=== PATIENT | female | born 1970 | race Caucasian/White ===

== ENCOUNTER 2022-06-05 11:03 | Emergency (ER) | payer OTHER ==
[~2022-06-05] VITALS: Ht 149.9 cm; Wt 83.5 kg
[2022-06-05 11:23] VITALS: BP 182/96
--- NOTE | 2022-06-05 11:33 | NUR ---
SCOTT. HANDED ON URINE CUP.
--- NOTE | 2022-06-05 11:39 | NUR ---
EKG AT TRIAGE ROOM
[2022-06-05 12:14] LABS: BASOPHILS # (AUTO) 0.1 K/uL (0.00-0.22); BASOPHILS % (AUTO) 0.6 % (0.0-2.0); EOSINOPHILS # (AUTO) 0.2 K/uL (0-0.4); EOSINOPHILS % (AUTO) 1.7 % (0.0-4.0); HEMATOCRIT 40.6 % (36-48); HEMOGLOBIN 13.7 g/dL (12.0-16.0); LYMPHOCYTES # (AUTO) 2.8 K/uL (2.5-16.5); LYMPHOCYTES % (AUTO) 26.4 % (20.5-51.1); MEAN CORPUSCULAR HEMOGLOBIN 29 pg (27-31); MEAN CORPUSCULAR HGB CONC 34 g/dL (33-37); MONOCYTES # (AUTO) 0.6 K/uL (0.8-1.0); MONOCYTES % (AUTO) 5.8 % (1.7-9.3); NEUTROPHILS # (AUTO) 6.8 K/uL (1.8-7.7); NEUTROPHILS % (AUTO) 65.5 % (42.2-75.2); PLATELET COUNT (AUTO) 372 K/uL (140-450); RED BLOOD CELL COUNT(AUTO) 4.72 MIL/uL (4.20-5.40); WHITE BLOOD COUNT (AUTO) 10.4 K/uL (4.8-10.8)
[2022-06-05 12:20] LABS: ALBUMIN 3.4 g/dL (3.4-5.0); ANION GAP 10.6 (8-16); CARBON DIOXIDE 29.4 mmol/L (21-32); CREATININE 0.6 mg/dL (0.6-1.3); TOTAL BILIRUBIN 0.4 mg/dL (0.0-1.0)
--- NOTE | 2022-06-05 13:45 | NUR ---
51YO FEMALE PT C/O INTERMITTENT THROBBING 6/10 ABDOMINAL PAIN X3DAYS. STATES EPISODES LASTING 5-10 MINUTES W/ RADIATION FROM RUQ TO R MID BACK. ABDOMEN TENDER TO TOUCH AND NON DISTENDED. DENIES TAKING MEDICATION FOR PAIN, V/D, CHEST PAIN, SOB ,FEVER ,CHILLS OR DYSURIA. NOTES NAUSEA THIS MORNING AND DECREASE IN URINE FREQUENCY. PT AAOX4, NO VISIBLE DISTRESS. RSPIRATIONS EVEN AND UNLABORED. HX: CHF, HTN, ASTHMA, CHRONIC BRONCHITIS ALLERGIES: BENADRYL , CONSTRAST
[2022-06-05 13:51] LABS: APPEARANCE,URINE CLEAR (CLEAR); BILIRUBIN,URINE NEGATIVE (NEGATIVE); BLOOD, URINE NEGATIVE (NEGATIVE); COLOR,URINE YELLOW (YELLOW); LEUKOCYTE ESTERASE ,URINE NEGATIVE (NEGATIVE); NITRITE, URINE NEGATIVE (NEGATIVE); PH,URINE 6.5 (5.0-9.0); UGLUCOSE NEGATIVE (NEGATIVE)
[2022-06-05] MEDS ORDERED: FAMO-90 PO ×2 (15:45→16:14)
[2022-06-05 16:01] VITALS: BP 122/80
== END 2022-06-05 16:02 | disposition home or self-care (01) ==
LOC: MED 11:03
DX: R10.11 Right upper quadrant pain (principal); Z88.8 Allergy status to other drugs, medicaments and biological substances
CPT/HCPCS: 36415; 76705; 80053; 81003; 85025; 99284; Q0092; 81002